=== PATIENT | female | born 1970 | race African-American/Black ===

== ENCOUNTER 2016-06-03 18:16 | Observation (INO) ==
[2016-06-03 20:11] LABS: AGAP 14; ALBUMIN 4.2 g/dL (3.5-5.0); ALKALINE PHOSPHATASE 70 U/L (32-104); BUN 11 mg/dL (8-22); CALCIUM 8.7 mg/dL (8.8-10.2); CHLORIDE 105 mmol/L (98-107); COSMO 284; GOT 24 U/L (10-30); GPT 8 U/L (10-36); POTASSIUM 3.9 mmol/L (3.5-5.1); SODIUM 143 mmol/L (136-145); TCO2 24 mmol/L (25-35); TOTAL BILIRUBIN 0.23 mg/dL (0.20-1.00); TOTAL PROTEIN 7.7 g/dL (6.3-8.3)
--- NOTE | 2016-06-03 20:18 | PROVIDER DOCUMENTATION ---
HPI-Musculoskeletal Pain/Inj - GENERAL Chief Complaint: Extremity Pain Stated Complaint: PAIN LT FOOT, COUGH/SOB Time Seen by Provider: 06/03/16 18:45 Source: patient - HX OF PRESENT ILLNESS-MUSKULOSKELTAL Nature of Presenting Problem: This pt presents today c complaints of left foot pain X 3 days. She denies any known injury or trauma. There is no swelling or erythema noted. She reports that the pain is worse when she puts pressure on her heel. She reports a hx of gout but has never had this pain in her heel before. Pt is also requesting that we check her "blood count". She states that she has a hx of anemia and is supposed to be on iron supplements but does not currently take them. She states that two years ago she had to be hospitalized because she has frequently heavy menses and this causes iron deficiency anemia. She states that she is having similar symptoms at this time. No other issues or complaints. Quality of Pain: reports: aching Severity in ED: mild Onset/Duration: 3 days ago Timing: still present Modifying Factors: improves with: movement, palpation Any recent injury?: No Similar Symptoms Previously?: No Recently seen or treated by another doctor?: No Review of Systems - Adult - REVIEW OF SYSTEMS - ADULT Constitutional: reports: fatique. denies: chills, fever Eyes: reports: no symptoms reported. denies: discharge, dry eyes Ears, Nose, Mouth & Throat: reports: no symptoms reported. denies: ear discharge, ear pain Cardiovascular: reports: no symptoms reported. denies: chest pain, edema Respiratory: reports: no symptoms reported. denies: chronic cough, cough Gastrointestinal: reports: no symptoms reported. denies: abdominal pain, hematemesis Genitourinary: reports: see HPI. denies: dysuria, discharge Musculoskeletal: reports: bone pain, muscle aches. denies: back pain, frequent leg cramps, joint swelling Integumentary: reports: no symptoms reported. denies: hives, hair loss Neurological: reports: no symptoms reported. denies: ataxia, dizziness/vertigo Psychiatric: reports: no symptoms reported. denies: anxiety, anti-depressant use Endocrine: reports: no symptoms reported Hematologic/Lymphatic: reports: see HPI Allergic/Immunologic: reports: no symptoms reported All Other Systems: Reviewed and Negative Past History - Adult - PAST MEDICAL HISTORY-ADULT Review of Records: reports: Old Records Reviewed, Nursing Assessment Review, Medications Reviewed, Social history reviewed & non-contributory. Major Childhood Illnesses: reports: denies history Cardiovascular: reports: blood clots (DVT left leg), HTN Respiratory: reports: denies history Gastrointestinal: reports: denies history Obstetrical/Gynecological: reports: fibroids Genitourinary: reports: denies history Musculoskeletal: reports: denies history Neurological: reports: denies history Psychiatric: reports: depression Endocrine/Immune: reports: denies history Other Conditions: reports: denies history - FAMILY HISTORY Family History: reviewed, not pertinent - SOCIAL HISTORY Smoking: cigarettes, less than 1 pack/day Provider spent 3-5 mins advising pt. on dangers of tobacco.: Discussed manners to quit use, and f/u contacts for add'l counseling. Physical Exam-Injury Related - Physical Exam-Injury Related Initial Vital Signs Reviewed: Yes General Appearance: appears well, alert, no apparent distress Eyes: PERRL/EOMI, pink conjunctivae Head, Ears, Nose, Mouth & Throat: normocephalic/atraumatic, moist mucous membranes, normal ENT inspection Neck: non-tender, full range of motion, supple, normal inspection Respiratory: chest non-tender, lungs clear, normal breath sounds, no pleuratic chest pain, no respiratory distress, no accessory muscle use Cardiovascular: normal peripheral pulses, regular rate, rhythm Abdominal Exam: normal bowel sounds, non tender, soft, no organomegaly, no pulsatile mass, abdominal bruit, abnormal bowel sounds Back Exam: normal inspection, no CVA tenderness, no vertebral tenderness Extremity: normal range of motion, normal gait, normal inspection, tenderness ( left heel). negative: pulse deficit, pedal edema, swelling Integumentary: normal color, warm/dry, blanching Neurologic: grossly normal, no motor/sensory deficits Psych/Mental Status: normal mood/affect, normal thought content, normal thought process, oriented x 3 Progress - PLAN OF CARE/RESULTS Progress/Plan/Lab Results: Laboratory Tests 06/03/16 06/03/16 06/03/16 19:03 19:03 19:07 WBC 6.48 RBC 3.66 L Hgb 5.2 L* Hct 20.2 L MCV 55.2 L MCH 14.2 L MCHC 25.7 L RDW Std Deviation 24.0 H Plt Count 562 H MPV Not Reportable Immature Gran % (Auto) 0.3 Neut % (Auto) 58.8 Lymph % (Auto) 24.7 [place] % (Auto) 12.5 H Eos % (Auto) 2.8 Baso % (Auto) 0.9 H Immature Gran # (Auto) 0.02 Neut # (Auto) 3.81 Lymph # (Auto) 1.60 [place] # (Auto) 0.81 H Eos # (Auto) 0.18 Baso # (Auto) 0.06 Sodium 143 Potassium 3.9 Chloride 105 Carbon Dioxide 24 L Anion Gap 14 BUN 11 Creatinine 1.0 H Estimated GFR/1.73 m2 > 60 BUN/Creatinine Ratio 11 Glucose 86 Calculated Osmolality 284 Uric Acid 4.5 Calcium 8.7 L Total Bilirubin 0.23 AST 24 ALT 8 L Alkaline Phosphatase 70 Total Protein 7.7 Albumin 4.2 Globulin 3.5 Albumin/Globulin Ratio 1.2 Orders Category Date Time Status Saline Loc NOW Care 06/03/16 20:21 Active FOOT COMPLETE LEFT [RAD] Stat Exams 06/03/16 18:32 Taken CBC WITH ELECTRONIC DIFF [HEME] Stat Lab 06/03/16 19:07 Results CMP [COMPREHENSIVE METABOLIC PANEL] [CHEM] Stat Lab 06/03/16 19:03 Completed PROTIME WITH INR [COAG] Stat Lab 06/03/16 19:03 Received PTT [COAG] Stat Lab 06/03/16 19:03 Received TYPE & SCREEN [BBK] Stat Lab 06/03/16 20:21 Uncollected URIC ACID [CHEM] Stat Lab 06/03/16 19:03 Completed Vital Signs Temp Pulse Resp BP Pulse Ox 06/03/16 18:22 98.3 F 106 H 18 156/78 100 doxycycline Allergy (Severe, Verified 06/03/16 18:59) VOMITING; SWELLING TO FACE No Home Medications 06/03/16 Laboratory 06/03/16 06/03/16 06/03/16 19:07 19:03 19:03 WBC 6.48 RBC 3.66 L Hgb 5.2 L* Hct 20.2 L MCV 55.2 L MCH 14.2 L MCHC 25.7 L RDW Std Deviation 24.0 H Plt Count 562 H MPV Not Reportable Immature Gran % (Auto) 0.3 Neut % (Auto) 58.8 Lymph % (Auto) 24.7 [place] % (Auto) 12.5 H Eos % (Auto) 2.8 Baso % (Auto) 0.9 H Immature Gran # (Auto) 0.02 Neut # (Auto) 3.81 Lymph # (Auto) 1.60 [place] # (Auto) 0.81 H Eos # (Auto) 0.18 Baso # (Auto) 0.06 Sodium 143 Potassium 3.9 Chloride 105 Carbon Dioxide 24 L Anion Gap 14 BUN 11 Creatinine 1.0 H Estimated GFR/1.73 m2 > 60 BUN/Creatinine Ratio 11 Glucose 86 Calculated Osmolality 284 Uric Acid 4.5 Calcium 8.7 L Total Bilirubin 0.23 AST 24 ALT 8 L Alkaline Phosphatase 70 Total Protein 7.7 Albumin 4.2 Globulin 3.5 Albumin/Globulin Ratio 1.2 Pt's story seems to be evolving. She is now reporting that she 3 weeks ago she had a pain in her calf and was concerned that this may have been a DVT because she does have a hx. She states that she had some "leftover" coumadin so she took those for 3 days. The pain resolved on the same day however and she has no pain or DVT symptoms at this time. Will consult hospitalist service for admission and blood transfusion. Discussed case c Dr. Jarvis and he is in agreement. - CONSULTS/PCP/HOSPITALIST Notification #1 *Consult/PCP/Hospitalist*: Dr. Stewart Time Discussed: 20:42 Consult Disposition: Will see in ED (Will decide on admission.) Departure - Departure Time of Disposition Order: 21:18 DIAGNOSIS: Foot pain Qualifiers: Laterality: left Qualified Code(s): M79.672 - Pain in left foot Fatigue Qualifiers: Fatigue type: other Qualified Code(s): R53.83 - Other fatigue Anemia Qualifiers: Anemia type: iron deficiency Iron deficiency anemia type: unspecified iron deficiency Qualified Code(s): D50.9 - Iron deficiency anemia, unspecified Disposition: ADMITTED INPATIENT 09 Certified Medical Emergency: Emergent Condition: Stable Referrals: None,PCP [Primary Care Provider] - Attestation - Physician/ TERESITA Attestation Patient care was provided by Advanced Practice Provider:: Yes Advanced Practice Provider:: Robert Ignacio Advanced Practice Provider documentation review:: The Mid-level provider documentation, treatment plan and medical decision making was reviewed by the physician who agrees with all treatment and medical decision making by the MLP.
[2016-06-03 20:24] LABS: HEMATOCRIT 20.2 % (37.0-47.0); HEMOGLOBIN 5.2 g/dL (12.0-16.0)
[2016-06-03 20:25] LABS: BASO% 0.9 % (0.0-0.8); EOS# 0.18 X1000 (0.0-0.7); EOS% 2.8 % (0.0-10.0); IMM GRAN# 0.02 X1000 (0.0-0.04); IMM GRAN% 0.3 % (0.0-0.5); LYMPH% 24.7 % (20.5-51.1); MANUAL DIFF NEEDED? YES; MCH 14.2 PG (27-31); MCHC 25.7 g/dL (33-37); MCV 55.2 FL (81-99); MONO# 0.81 X1000 (0.11-0.59); MONO% 12.5 % (1.7-9.3); NEUT% 58.8 % (42.2-75.2); PLT 562 X1000 (130-400); RBC 3.66 XMIL (4.2-5.4)
[2016-06-03 20:42] LABS: BANDS 2 % (0-1); EOS 2 % (1-10); LYMPHS 18 % (21-51); MONO 8 % (1-9)
[2016-06-03 20:45] LABS: HYPOCHROM 3+; POLYCHROM 1+
[2016-06-03 20:46] LABS: TARGET CELLS 1+
[2016-06-03 20:47] LABS: LARGE PLATELETS OCCASIONAL
[2016-06-03 20:50] LABS: INR 0.98; PTT 20.4 Seconds (22.0-36.0)
--- NOTE | 2016-06-03 22:33 | HISTORY AND PHYSICAL ---
PRIMARY CARE PHYSICIAN: None. CHIEF COMPLAINT: Weakness, shortness of breath, left foot pain times several days. HISTORY OF PRESENTING ILLNESS: A 46-year-old female with a history of hypertension, DVT, currently not on any medication presented to emergency department complaining of worsening weakness, shortness of breath and also having left foot pain for the past several days. The patient states that she does have a history of heavy menstrual cycles and just has recently come off of her cycle. She was evaluated in the ER, she was found to be severely anemic and due to her symptoms it was thought that we would place her in for observation for further management. At the time of my examination, she had denied any headache, fever, chills, chest pain, hemoptysis, melena or weight changes but complained of shortness of breath and not feeling well. PAST MEDICAL HISTORY: Includes DVT, hypertension. PAST SURGICAL HISTORY: None. ALLERGIES: Doxycycline. CURRENT MEDICATIONS: None. SOCIAL HISTORY: Ten pack years history of smoking. Denies any history of alcohol or illicit drug use. FAMILY HISTORY: No history of coronary disease. REVIEW OF SYSTEMS: Twelve point review of systems is as in HPI. Other systems negative. PHYSICAL EXAMINATION: GENERAL: Cooperative, friendly female. She is resting more comfortably now. VITAL SIGNS: Temperature 98.3 degrees, pulse 106 respiration 18, blood pressure 156/78. She is saturating 100%. HEENT: Atraumatic, normocephalic. Extraocular movements intact. PERRLA. NECK: No masses. CHEST: Clear to auscultation. CARDIOVASCULAR: Regular rhythm. ABDOMEN: Soft. Positive bowel sounds. EXTREMITIES: No edema. NEURO: She is awake, alert, oriented x3. : No bladder distention. SKIN: Warm. LABORATORIES AND STUDIES: WBC 6.48, hemoglobin 5.2, hematocrit 20.2, platelets 562,000. Sodium 143, potassium 3.9, chloride 105, CO2 is 24, BUN is 11, creatinine 1.0, glucose is 86. ASSESSMENT: A 46-year-old female with a history of heavy menstrual cycles and hypertension had presented to emergency department complaint of worsening shortness of breath, weakness and fatigue. She was found in the emergency room to be severely anemic and due to her presenting symptoms, she will need hospitalization for further management. 1. Symptomatic anemia. 2. Menorrhagia. 3. Hypertension. 4. Left heal pain- suspected plantar fasciitis PLAN: 1. We will admit patient to medical floor. 2. Will type and cross and transfuse 2 units of blood. 3. Will do an outpatient gynecology referral. 4. Will put patient on iron supplements. 5. Will monitor her blood pressure closely. 6. NSAIDS for pain, achilles tendon stretches 7. Will put patient on DVT prophylaxis with SCDs. 8. Will continue to follow and reassess. DANNA
[2016-06-03] MEDS ORDERED: BENADRYL PO ONE (22:44)
[2016-06-03] MEDS ORDERED: TYLENOL PO ONE (22:44)
[2016-06-03] MEDS ORDERED: LASIX IV SCH (22:45)
[2016-06-04] MEDS ORDERED: NS 500 ML ONE (02:30)
[2016-06-04] MEDS ORDERED: TYLENOL PO PRN (04:18)
[2016-06-04 06:38] LABS: HEMATOCRIT 23.6 % (37.0-47.0); HEMOGLOBIN 6.8 g/dL (12.0-16.0); MCH 17.7 PG (27-31); MCHC 28.8 g/dL (33-37); MCV 61.5 FL (81-99); PLT 429 X1000 (130-400); RBC 3.84 XMIL (4.2-5.4)
[2016-06-04] MEDS ORDERED: BENADRYL PO ONE (07:58)
[2016-06-04] MEDS ORDERED: NS 500 ML IV ONE (07:58)
--- NOTE | 2016-06-04 10:41 | Diag Imaging Result Document ---
PROCEDURE NAME: FOOT COMPLETE LEFT - 06/03/2016 LEFT FOOT, 3 VIEWS: FINDINGS: There is apparent relatively generalized soft tissue swelling, most conspicuous at the hindfoot. There is calcaneal spurring at the plantar fascia insertion. There is no fracture or dislocation identified. There are no erosive or destructive changes identified. There is no opaque foreign body seen. IMPRESSION: Soft tissue swelling, most conspicuous at the hindfoot/heel. No visible acute bony abnormality.
--- NOTE | 2016-06-04 11:53 | PROGRESS NOTE ---
DATE: 06/04/2016 SUBJECTIVE: The patient notes she is feeling okay, denies any chest pain, palpitations. PHYSICAL EXAMINATION: Temperature 98, pulse 70, respiratory 18, BP 149/87.General: Patient well developed, well nourished. Currently in no real respiratory distress. She is awake, alert. Neck: Supple. CV: Regular rate. Chest: Relatively clear. Abdomen: Soft, nondistended. Extremities: Moves all extremities. LABS: Hemoglobin and hematocrit 6 and 23 after 2 units of transfusion. ASSESSMENT: 1. Acute anemia secondary to dysfunctional uterine bleeding. 2. Dysfunctional uterine bleeding. 3. Hypertension. 4. Chronic tobacco abuse. Discussed with patient the perils of smoking. PLAN: We will type, cross, transfuse 2 more units of blood. We will recheck hemoglobin and hematocrit in the a.m. If it is stable, hopefully can get her home at that point, and she can follow up outpatient with [facility].
[2016-06-05 06:48] LABS: HEMATOCRIT 29.5 % (37.0-47.0); HEMOGLOBIN 8.9 g/dL (12.0-16.0); MCH 19.2 PG (27-31); MCHC 30.2 g/dL (33-37); MCV 63.7 FL (81-99); PLT 396 X1000 (130-400); RBC 4.63 XMIL (4.2-5.4)
[2016-06-05 07:22] LABS: AGAP 9; ALBUMIN 3.6 g/dL (3.5-5.0); ALKALINE PHOSPHATASE 60 U/L (32-104); BUN 11 mg/dL (8-22); CALCIUM 8.9 mg/dL (8.8-10.2); CHLORIDE 107 mmol/L (98-107); COSMO 278; GOT 12 U/L (10-30); GPT 6 U/L (10-36); POTASSIUM 4.2 mmol/L (3.5-5.1); SODIUM 140 mmol/L (136-145); TCO2 24 mmol/L (25-35); TOTAL PROTEIN 6.6 g/dL (6.3-8.3)
[2016-06-05 17:08] VITALS: BP 150/75
--- NOTE | 2016-06-06 07:33 | DISCHARGE SUMMARY ---
ADMISSION DATE: 06/03/2016 DISCHARGE DATE: 06/05/2016 DISCHARGE DIAGNOSES: 1. Symptomatic anemia. Hemoglobin and hematocrit 5 and 20 on admit; 8 and 29 on discharge after 4 units. 2. Hyperchromic anemia secondary to dysfunctional uterine bleeding and iron deficiency. 3. Menometrorrhagia. 4. Hypertension. CONSULTATIONS: None. PROCEDURES: None. BRIEF HOSPITAL COURSE: Patient is a 46-year-old female who was admitted as noted on the HPI. Treated in usual fashion. She was placed on the floor given IV fluids. Typed and crossed and transfused 2 units. Her hemoglobin and hematocrit improved, but only to 6 and 23. She was given 2 more units and her hemoglobin and hematocrit improved to 8 and 29. Her bleeding has somewhat resided at the moment. DISPOSITION: The patient was discharged home. Discussed her that she needs to follow up outpatient with [facility]. The patient states she understands and is ready to go. She is having no chest pain or palpitations. She is ambulating without any difficulty. TIME SPENT: 35 minutes was spent in discharge planning and instructions.
== END 2016-06-05 19:15 | disposition home or self-care (01) ==
LOC: ED 18:16 → P.MEDSURG 22:25
PROVIDERS: ATTEND Family Medicine
DX: D50.9 Iron deficiency anemia, unspecified (principal); M79.672 Pain in left foot; R53.1 Weakness; R06.02 Shortness of breath; N93.8 Other specified abnormal uterine and vaginal bleeding; N92.1 Excessive and frequent menstruation with irregular cycle; F17.210 Nicotine dependence, cigarettes, uncomplicated; I10 Essential (primary) hypertension; Z86.718 Personal history of other venous thrombosis and embolism
CPT/HCPCS: 36415; 36430; 80053; 84550; 85025; 85027; 85610; 85730; 86850; 86900; 86901; 86920; 96374; J1940; J7040; P9016; 99285-25

== ENCOUNTER 2016-06-07 16:23 | Inpatient (IN) ==
--- NOTE | 2016-06-07 18:57 | PROVIDER DOCUMENTATION ---
HPI-Rash/Wound/ReCheck - General Chief Complaint: Post Op Complaint Stated Complaint: IV SITE SWOLLEN SORE REDNESS Time Seen by Provider: 06/07/16 18:12 Source: patient Allergies/Adverse Reactions: Allergies Allergy/AdvReac Type Severity Reaction Status Date / Time doxycycline Allergy Severe VOMITING; Verified 06/07/16 18:08 SWELLING TO FACE Home Medications: Home Medication List Medication Instructions Recorded Confirmed Last Taken Type No Home Medications 06/07/16 06/07/16 Unknown History - History of Present Illness-Dermatology Nature of Presenting Problem: 46 y/o BF c/o L arm pain/redness/swelling x 2 days. Pt states that she had a blood infusion on Monday and noted redness occurring then. States worse when the IV was taken out on Monday. States no other sxs at this time. Review of Systems - Adult - REVIEW OF SYSTEMS - ADULT Constitutional: reports: no symptoms reported. denies: chills, fever Eyes: reports: no symptoms reported. denies: blurred vision, double vision Ears, Nose, Mouth & Throat: reports: no symptoms reported. denies: ear pain, nose pain Cardiovascular: reports: no symptoms reported. denies: chest pain, palpitations Respiratory: reports: no symptoms reported. denies: dyspnea on exertion, shortness of breath Gastrointestinal: reports: no symptoms reported. denies: nausea, vomiting Genitourinary: reports: no symptoms reported. denies: dysuria, frequency Musculoskeletal: reports: no symptoms reported. denies: joint pain, joint swelling Integumentary: reports: see HPI, other. denies: nail changes, rash Neurological: reports: no symptoms reported. denies: numbness, paresthesia Psychiatric: reports: no symptoms reported Endocrine: reports: no symptoms reported. denies: cold intolerance, heat intolerance Hematologic/Lymphatic: reports: no symptoms reported. denies: easy bruising, prolonged bleeding Allergic/Immunologic: reports: no symptoms reported All Other Systems: Reviewed and Negative Past History - Adult - PAST MEDICAL HISTORY-ADULT Review of Records: reports: Nursing Assessment Review, Medications Reviewed Major Childhood Illnesses: reports: denies history Cardiovascular: reports: blood clots (DVT left leg), HTN Respiratory: reports: denies history Gastrointestinal: reports: denies history Obstetrical/Gynecological: reports: fibroids Genitourinary: reports: denies history Musculoskeletal: reports: denies history Neurological: reports: denies history Psychiatric: reports: depression Endocrine/Immune: reports: denies history Other Conditions: reports: denies history - FAMILY HISTORY Family History: reviewed, not pertinent - SOCIAL HISTORY Smoking: quit greater than 1 year Physical Exam-General - PHYSICAL EXAM-ADULT Initial Vital Signs Reviewed: Yes - CONSTITUTIONAL General Appearance: alert, mild distress - EYES Eyes: pink conjunctivae - HEAD, EARS, NOSE, MOUTH & THROAT HENMT: normocephalic/atraumatic, moist mucous membranes - NECK Neck: supple, normal inspection - RESPIRATORY Respiratory: no respiratory distress - CARDIOVASCULAR Cardiovascular: normal peripheral pulses, regular rate, rhythm. negative: bradycardia, tachycardia - LYMPHATIC Lymphatic: no adenopathy - MUSCULOSKELETAL Back Exam: normal inspection Extremity: normal gait, normal capillary refill. negative: abnormal NV exam, pulse deficit Peripheral Pulses: radial (R): 2+, radial (L): 2+ - SKIN Integumentary: normal color, normal turgor, warm/dry, erythema (L forearm and humerus), warm (L forearm and humerus) Progress - PLAN OF CARE/RESULTS Progress/Plan/Lab Results: Laboratory Tests 06/07/16 06/07/16 06/07/16 18:35 18:35 18:35 WBC 11.49 H RBC 5.13 Hgb 9.9 L Hct 33.4 L MCV 65.1 L MCH 19.3 L MCHC 29.6 L RDW Std Deviation Not Reportable Plt Count 446 H MPV Not Reportable Immature Gran % (Auto) 0.2 Neut % (Auto) 70.6 Lymph % (Auto) 19.8 L Desha % (Auto) 8.0 Eos % (Auto) 1.0 Baso % (Auto) 0.4 Immature Gran # (Auto) 0.02 Neut # (Auto) 8.11 H Lymph # (Auto) 2.27 Desha # (Auto) 0.92 H Eos # (Auto) 0.12 Baso # (Auto) 0.05 Segmented Neutrophils Lymphocytes Monocytes Hypochromia Poikilocytosis Anisocytosis Microcytosis PT INR D-Dimer 2.34 H Sodium 140 Potassium 3.7 Chloride 102 Carbon Dioxide 24 L Anion Gap 14 BUN 13 Creatinine 1.0 H Estimated GFR/1.73 m2 > 60 BUN/Creatinine Ratio 13 Glucose 127 H Calculated Osmolality 281 Calcium 9.0 03/06/08/16 06/08/16 06:40 06:40 16:20 WBC 9.43 RBC 4.47 Hgb 8.9 L Hct 29.2 L MCV 65.3 L MCH 19.9 L MCHC 30.5 L RDW Std Deviation Not Reportable Plt Count 381 MPV Not Reportable Immature Gran % (Auto) 0.0 Neut % (Auto) 66.1 Lymph % (Auto) 22.3 Desha % (Auto) 9.4 H Eos % (Auto) 1.8 Baso % (Auto) 0.4 Immature Gran # (Auto) 0.00 Neut # (Auto) 6.23 Lymph # (Auto) 2.10 Desha # (Auto) 0.89 H Eos # (Auto) 0.17 Baso # (Auto) 0.04 Segmented Neutrophils 70 Lymphocytes 22 Monocytes 8 Hypochromia 1+ Poikilocytosis OCCASIONAL Anisocytosis 1+ Microcytosis 1+ PT 10.0 INR 0.98 D-Dimer Sodium 139 Potassium 4.3 D Chloride 106 Carbon Dioxide 24 L Anion Gap 9 BUN 11 Creatinine 0.9 Estimated GFR/1.73 m2 > 60 BUN/Creatinine Ratio 12 Glucose 94 Calculated Osmolality 277 Calcium 9.0 06/09/16 06:19 WBC RBC Hgb Hct MCV MCH MCHC RDW Std Deviation Plt Count MPV Immature Gran % (Auto) Neut % (Auto) Lymph % (Auto) Desha % (Auto) Eos % (Auto) Baso % (Auto) Immature Gran # (Auto) Neut # (Auto) Lymph # (Auto) Desha # (Auto) Eos # (Auto) Baso # (Auto) Segmented Neutrophils Lymphocytes Monocytes Hypochromia Poikilocytosis Anisocytosis Microcytosis PT 10.1 INR 0.99 D-Dimer Sodium Potassium Chloride Carbon Dioxide Anion Gap BUN Creatinine Estimated GFR/1.73 m2 BUN/Creatinine Ratio Glucose Calculated Osmolality Calcium Orders Category Date Time Status Admit - [facility] Routine AdmDCTranf 06/07/16 22:49 Ordered Activity - Up with Assistance ORDERED Care 06/07/16 22:49 Active Apply Mechanical Device [QM] ORDERED Care 06/07/16 22:49 Active Does patient desire to be vacc [QM] ONCE Care 06/08/16 03:48 Completed Intake and Output-Strict ORDERED Care 06/07/16 22:49 Active Previous Flu Vaccine THIS SEAS [QM] ONCE Care 06/08/16 03:48 Completed Vital Signs Order Q 8-HR ASSESS Care 06/07/16 22:49 Active Regular Diet Diet 06/07/16 22:21 Active ANGIOGRAM/PULMONARY ARTERIES [CT] Stat Exams 06/07/16 21:57 Completed BASIC METABOLIC PANEL [CHEM] Routine Lab 06/08/16 06:40 Completed BMP [BASIC METABOLIC PANEL] [CHEM] Stat Lab 06/07/16 18:35 Completed CBC WITH DIFF [HEME] Routine Lab 06/08/16 06:40 Completed CBC WITH ELECTRONIC DIFF [HEME] Stat Lab 06/07/16 18:35 Completed Ddimer [D-DIMER] [CHEM] Stat Lab 06/07/16 18:35 Completed PROTIME WITH INR [COAG] DAILY Lab 06/09/16 06:19 Completed PROTIME WITH INR [COAG] DAILY Lab 06/10/16 06:00 Ordered PROTIME WITH INR [COAG] DAILY Lab 06/11/16 06:00 Ordered PROTIME WITH INR [COAG] Routine Lab 06/08/16 16:20 Completed Acetaminophen [Tylenol] Med 06/07/16 22:49 Active 650 mg PO Q6H PRN PRN Clindamycin 900 mg/Ns 50 ml Med 06/07/16 19:40 Discontinued IV NOW Enoxaparin [Lovenox] Med 06/08/16 01:30 Active 90 mg SUBQ Q12H Ondansetron [Zofran] Med 06/07/16 22:49 Active 4 mg IV Q4H PRN PRN Piperacil/Tazobact 4.5 gm/Ns [Zosyn 4.5 gm/Ns] 100 ml Med 06/07/16 21:56 Discontinued IV NOW Warfarin [Coumadin] Med 06/08/16 21:00 Active 10 mg PO QHS Telemetry [OM.EQ] Routine Oth 06/07/16 22:49 Active Venous U/S Left Arm [CV] Stat Ther 06/07/16 19:39 Completed Transfer/Admit Order [TRANSFER] Routine Transfer 06/07/16 22:20 Completed Vital Signs Temp Pulse Resp BP Pulse Ox 06/09/16 19:30 97.9 F 100 H 18 141/77 97 06/09/16 15:19 98.2 F 65 18 135/68 98 06/09/16 07:32 98.5 F 63 18 136/70 100 06/09/16 03:33 98.3 F 66 149/95 97 06/08/16 19:44 98.4 F 70 131/71 97 06/08/16 14:00 98.4 F 72 14 140/101 100 06/08/16 07:40 98.7 F 66 14 145/103 98 06/08/16 00:54 98.0 F 82 20 151/92 98 06/08/16 00:27 97.5 F L 83 18 140/79 98 06/07/16 21:09 98.4 F 103 H 18 157/96 100 06/07/16 16:43 98.8 F 88 18 162/96 100 doxycycline Allergy (Severe, Verified 06/07/16 18:08) VOMITING; SWELLING TO FACE No Home Medications 06/07/16 Dietary Diet Regular Diet Start MonJun 07 2220 I&O 06/08/16 06/09/16 06/10/16 06:59 06:59 06:59 Intake Total 1290 1370 Output Total 400 1800 1200 Balance -400 -510 170 Laboratory 06/09/16 06/08/16 06/08/16 06:19 16:20 06:40 WBC 9.43 RBC 4.47 Hgb 8.9 L Hct 29.2 L MCV 65.3 L MCH 19.9 L MCHC 30.5 L RDW Std Deviation Not Reportable Plt Count 381 MPV Not Reportable Immature Gran % (Auto) 0.0 Neut % (Auto) 66.1 Lymph % (Auto) 22.3 Desha % (Auto) 9.4 H Eos % (Auto) 1.8 Baso % (Auto) 0.4 Immature Gran # (Auto) 0.00 Neut # (Auto) 6.23 Lymph # (Auto) 2.10 Desha # (Auto) 0.89 H Eos # (Auto) 0.17 Baso # (Auto) 0.04 Segmented Neutrophils 70 Lymphocytes 22 Monocytes 8 Hypochromia 1+ Poikilocytosis OCCASIONAL Anisocytosis 1+ Microcytosis 1+ PT 10.1 10.0 INR 0.99 0.98 Sodium Potassium Chloride Carbon Dioxide Anion Gap BUN Creatinine Estimated GFR/1.73 m2 BUN/Creatinine Ratio Glucose Calculated Osmolality Calcium 06/08/16 06:40 WBC RBC Hgb Hct MCV MCH MCHC RDW Std Deviation Plt Count MPV Immature Gran % (Auto) Neut % (Auto) Lymph % (Auto) Desha % (Auto) Eos % (Auto) Baso % (Auto) Immature Gran # (Auto) Neut # (Auto) Lymph # (Auto) Desha # (Auto) Eos # (Auto) Baso # (Auto) Segmented Neutrophils Lymphocytes Monocytes Hypochromia Poikilocytosis Anisocytosis Microcytosis PT INR Sodium 139 Potassium 4.3 D Chloride 106 Carbon Dioxide 24 L Anion Gap 9 BUN 11 Creatinine 0.9 Estimated GFR/1.73 m2 > 60 BUN/Creatinine Ratio 12 Glucose 94 Calculated Osmolality 277 Calcium 9.[address] Jarvis; he states to call hospitalist for admission. - ULTRASOUND (By Radiology) 1 US Study: Upper Ext (L) Impression: Discussed w/Radiology (clot in L cephalic and L median cubital veins extending down the UE to the wrist) - CONSULTS/PCP/HOSPITALIST Notification #1 *Consult/PCP/Hospitalist*: Dr. Stewart Time Discussed: 21:09 Reason/Comments: DVT Consult Disposition: Will see in ED Departure - Departure Time of Disposition Order: 21:00 DIAGNOSIS: Clot Cellulitis Qualifiers: Site of cellulitis: extremity Site of cellulitis of extremity: upper extremity Laterality: left Qualified Code(s): L03.114 - Cellulitis of left upper limb Anemia Qualifiers: Anemia type: unspecified type Qualified Code(s): D64.9 - Anemia, unspecified Disposition: ADMITTED INPATIENT 09 Certified Medical Emergency: Emergent Condition: Stable Attestation - Physician/ TERESITA Attestation Patient care was provided by Advanced Practice Provider:: Yes Advanced Practice Provider:: Mimi Sanford Advanced Practice Provider documentation review:: The Mid-level provider documentation, treatment plan and medical decision making was reviewed by the physician who agrees with all treatment and medical decision making by the MLP.
[2016-06-07 19:15] LABS: BASO% 0.4 % (0.0-0.8); EOS# 0.12 X1000 (0.0-0.7); HEMATOCRIT 33.4 % (37.0-47.0); HEMOGLOBIN 9.9 g/dL (12.0-16.0); IMM GRAN# 0.02 X1000 (0.0-0.04); IMM GRAN% 0.2 % (0.0-0.5); LYMPH# 2.27 X1000 (1.2-3.4); LYMPH% 19.8 % (20.5-51.1); MANUAL DIFF NEEDED? NO; MCH 19.3 PG (27-31); MCHC 29.6 g/dL (33-37); MCV 65.1 FL (81-99); MONO# 0.92 X1000 (0.11-0.59); NEUT% 70.6 % (42.2-75.2); PLT 446 X1000 (130-400); RBC 5.13 XMIL (4.2-5.4)
[2016-06-07 19:29] LABS: AGAP 14; BUN 13 mg/dL (8-22); CHLORIDE 102 mmol/L (98-107); COSMO 281; POTASSIUM 3.7 mmol/L (3.5-5.1); SODIUM 140 mmol/L (136-145); TCO2 24 mmol/L (25-35)
[2016-06-07] MEDS ORDERED: CLINDAMYCIN 900 MG/NS 50 ML IV ONE (19:40)
[2016-06-07] MEDS ORDERED: ZOSYN 4.5 GM/NS 100 ML IV ONE (21:56)
--- NOTE | 2016-06-07 22:39 | HISTORY AND PHYSICAL ---
CHIEF COMPLAINT: For left forearm erythema and edema for several days. HISTORY OF PRESENTING ILLNESS: A 46-year-old female was just recently discharged from [facility] after treatment for anemia and dysfunctional uterine bleeding. She had went home and where the IV site was she developed moderate amount of pain and erythema. She returned back to the hospital here and she was found to have a DVT. Due to her presenting symptoms, she will need hospitalization for further management. At the time of my examination, she denied any headache, fever, chills, chest pain, shortness of breath, hemoptysis or weight changes. She does complain of left forearm pain. PAST MEDICAL HISTORY: Includes dysfunctional uterine bleeding. PAST SURGICAL HISTORY: None. ALLERGIES: Doxycycline. CURRENT MEDICATIONS: Listed on the MAY. SOCIAL HISTORY: She states she quit smoking last . She denies any history of alcohol or illicit drug use. FAMILY HISTORY: No history of coronary disease. REVIEW OF SYSTEMS: Twelve point systems is as in HPI. Other systems negative. PHYSICAL EXAMINATION: GENERAL: Cooperative, friendly female. She is resting comfortably now. VITAL SIGNS: Temperature 98.8 degrees, pulse 88, respiration 18, blood pressure 162/96. HEENT: Atraumatic, normocephalic. Extraocular movements intact. PERRLA. NECK: No masses. CHEST: Clear to auscultation. CARDIOVASCULAR: Regular rhythm. ABDOMEN: Soft. Positive bowel sounds. EXTREMITIES: Left forearm there is edema and erythema. NEURO: She is awake, alert, oriented x3. : No bladder distention. SKIN: Warm. LABORATORIES AND STUDIES: WBC 11.49, hemoglobin 9.9, hematocrit 33.4, platelets 446,000. D-dimer is 2.34. Sodium 140, potassium 3.7, chloride 102, CO2 24, BUN is 13, creatinine 1.0, glucose is 127. ASSESSMENT: A 46-year-old female who presented to the emergency department complain of left forearm pain. She apparently had an intravenous that was in that arm several days ago. She was found to have deep vein thrombosis. She will need hospitalization for management. Left upper extremity deep vein thrombosis. PLAN: 1. We will admit patient to medical floor. 2. We will start patient on Lovenox. 3. We will discuss options regarding anticoagulation for several more months. 4. We will continue to follow and reassess.
[2016-06-07] MEDS ORDERED: ZOFRAN IV PRN (22:49)
--- NOTE | 2016-06-07 23:22 | Diag Imaging Result Document ---
PROCEDURE NAME: ANGIOGRAM/PULMONARY ARTERIES - 06/07/2016 CT CHEST WITH INTRAVENOUS CONTRAST. DOSE REDUCTION PROTOCOL. FINDINGS: There are small peripheral filling defects within the branches of each lower lobe pulmonary artery. No large central fillings defects. No pleural effusions. No thoracic aortic aneurysm or dissection. There are small mediastinal lymph nodes. No enlarged lymph nodes. The heart is mildly prominent. There is a [id number] hiatal hernia. No consolidation. No bronchiectasis. IMPRESSION: 1. Small peripheral pulmonary emboli. 2. Luiribcb-vn-[id number] hiatal hernia. 3. Mild cardiomegaly. A preliminary report was called to Dr. Jarvis in the Emergency Room at 10:42 p.m..
--- NOTE | 2016-06-07 23:53 | HISTORY AND PHYSICAL ---
ADDENDUM: Please note that the ER physician had called me stating that a CAT scan of the chest was positive for bilateral pulmonary embolism. Patient as such is already being treated for left upper extremity DVT, and also is with the new findings will continue with Lovenox 1 mg/kg subcu q.12 hours, and bridge with either Coumadin or discuss options of patient being on Xarelto. MTDD
[2016-06-08] MEDS: LOVENOX SUBQ SCH ×2 (05:11→17:00)
[2016-06-08 07:15] LABS: BASO% 0.4 % (0.0-0.8); EOS# 0.17 X1000 (0.0-0.7); EOS% 1.8 % (0.0-10.0); HEMATOCRIT 29.2 % (37.0-47.0); HEMOGLOBIN 8.9 g/dL (12.0-16.0); LYMPH% 22.3 % (20.5-51.1); MANUAL DIFF NEEDED? YES; MCH 19.9 PG (27-31); MCHC 30.5 g/dL (33-37); MCV 65.3 FL (81-99); MONO# 0.89 X1000 (0.11-0.59); MONO% 9.4 % (1.7-9.3); NEUT% 66.1 % (42.2-75.2); PLT 381 X1000 (130-400); RBC 4.47 XMIL (4.2-5.4)
[2016-06-08 07:31] LABS: AGAP 9; BUN 11 mg/dL (8-22); CHLORIDE 106 mmol/L (98-107); COSMO 277; POTASSIUM 4.3 mmol/L (3.5-5.1); SODIUM 139 mmol/L (136-145); TCO2 24 mmol/L (25-35)
[2016-06-08 07:32] LABS: LYMPHS 22 % (21-51); MONO 8 % (1-9)
[2016-06-08 07:33] LABS: HYPOCHROM 1+
--- NOTE | 2016-06-08 13:35 | PROGRESS NOTE ---
DATE: 06/08/2016 A 45-year-old recently discharged from [facility] with treatment of anemia and dysfunctional uterine bleeding. She was scheduled for followup with [facility]. She went home, where at the IV site she developed a moderate amount of pain and erythema, and returned back. Hospital found a DVT. Due to her presenting symptoms, felt she would need hospitalization. 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 She has had 2 in the left leg, I believe. 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 I do not have the records of that workup, but this is her 3rd deep venous thrombosis, so I explained she will probably be on Coumadin for life. Left arm is a little better, a little less swollen. She was positive for bilateral pulmonary embolism, so will continue the Lovenox. She has been on Coumadin before. She cannot afford Xarelto. We will most likely go back on the Coumadin, and I will probably go ahead and start that tonight.
[2016-06-08 16:37] LABS: INR 0.98
[2016-06-08] MEDS: TYLENOL PO PRN (17:00)
[2016-06-08] MEDS: COUMADIN PO SCH (20:12)
[2016-06-09] MEDS: LOVENOX SUBQ SCH ×2 (04:27→17:14)
[2016-06-09 07:31] LABS: INR 0.99; PROTIME 10.1 Seconds (9.2-11.7)
--- NOTE | 2016-06-09 09:52 | PROGRESS NOTE ---
DATE: 06/09/2016 SUBJECTIVE: Ms. Mai's left arm is much better. Decreased swelling and breathing comfortably. OBJECTIVE: Vital Signs: Remains afebrile. Temperature 98.5 degrees, pulse 60, respirations 18, blood pressure 136/70. HEENT: Pupils are equal and round. Neck: Central venous pressure is less than 6 cm. Lungs: Clear in all lung lehman. Cardiovascular: Regular rhythm and rate without murmur or S3. Abdomen: Soft. Skin: Warm and dry. URINE OUTPUT: Was 500 mL. LAB: Reviewed from the hematocrit 29. Electrolytes look good. Her ProTime, which just started Coumadin yesterday, ProTime was 10.1, INR 0.99. ASSESSMENT AND PLAN: Deep venous thrombosis left arm. This is her third deep venous thrombosis. Will be on Coumadin probably for life at this point. She is getting clinical improvement still on the Lovenox. She may get to go home tomorrow. Make sure we get Coumadin level followed. Breathing is comfortable. She also has bilateral PTE noted on pulmonary angiogram and noted a moderate to large hiatal hernia was noted as well. We will see if maybe can go home tomorrow.
[2016-06-09] MEDS: COUMADIN PO SCH (21:12)
[2016-06-10] MEDS: LOVENOX SUBQ SCH ×2 (05:40→17:30)
[2016-06-10 07:53] LABS: INR 1.03; PROTIME 10.9 Seconds (9.2-11.7)
--- NOTE | 2016-06-10 14:44 | PROGRESS NOTE ---
DATE: 06/10/2016 SUBJECTIVE: Ms. Mai is feeling better. Left arm is less tender, a little less swelling. I still feel palpable cord in the medial part of left arm. Breathing is comfortable. OBJECTIVE: Vital signs: Afebrile, temperature 98.7 degrees, pulse 65, respirations 18, blood pressure 131/72. HEENT: Pupils are equal, round. CVP less than 6 cm. Lungs: Clear in all lung lehman. Cardiovascular: Regular rhythm and rate without murmur or S3. Abdomen: Soft. : Urine output is over 1000 mL an hour. LABORATORY: White count 9430, hematocrit 29, platelet count 381,000. Sodium 139, potassium 4.3, chloride 106, bicarb 24, BUN 11, creatinine 0.9. ASSESSMENT AND PLAN: Deep venous thrombosis bilateral left arm deep venous thrombosis. Continue Lovenox. We have started her on Coumadin 10 mg at bedtime. Her ProTime is 10.9, so I would like to keep her another day and hopefully she can go home in the morning. Making good progress.
[2016-06-10] MEDS: TYLENOL PO PRN (16:01)
[2016-06-10] MEDS: COUMADIN PO SCH (20:09)
[2016-06-11] MEDS: LOVENOX SUBQ SCH (05:34)
[2016-06-11 07:20] LABS: INR 1.1; PROTIME 11.7 Seconds (9.2-11.7)
[2016-06-11 07:40] VITALS: BP 123/68
[2016-06-11] MEDS: COUMADIN PO SCH (11:39)
[2016-06-11] MEDS: TYLENOL PO PRN (11:39)
--- NOTE | 2016-06-11 14:58 | Extremity Venous Study ---
PROCEDURE NAME: Venous U/S Left Arm - 06/07/2016 LEFT UPPER EXTREMITY VENOUS DUPLEX STUDY: REFERRING PHYSICIAN: Dr. Jarvis. READING PHYSICIAN: Dr. Josef Wells. CHIEF ACCOUNTING OFFICER: Carlo. INDICATION: Pain and swelling and redness in the left arm since an IV was removed on 06/05/2016. FINDINGS: The left internal jugular, subclavian, axillary, basilic, and brachial veins were imaged throughout their course. All are compressible with forward flow. No thrombus is appreciated. The left cephalic vein in the proximal arm is noncompressible. It has thrombus throughout from the upper arm to the wrist and through the median cubital fossa and branches in the forearm. INTERPRETATION: No deep vein thrombosis seen in the left arm; however, there is acute superficial venous thrombosis of the left cephalic vein as described above.
--- NOTE | 2016-06-11 18:08 | DISCHARGE SUMMARY ---
ADMISSION DATE: 06/07/2016 DISCHARGE DATE: 06/11/2016 HISTORY OF PRESENT ILLNESS: This is a 46-year-old female who presented with left forearm erythema and edema for several days, recently discharged from [facility] after treatment for anemia and dysfunctional uterine bleeding. She went home, and where her IV was she had developed an amount of pain and erythema, returned back to the hospital and was found to have a DVT in that left arm. Pulmonary arteriogram showed I think small bilateral PTEs, small peripheral pulmonary emboli, moderate to large hiatal hernia and mild cardiomegaly. She was put on Lovenox. She had previously been on Coumadin, so I put her back on her Coumadin with overlap and ProTime was 11.7, INR of 1.10. She had received really 3 days of Coumadin. Left arm was much better. It was felt she could go home. We will keep her on 6 mg of Coumadin daily. I want her to get her ProTime checked every week and then every month after that, which she will get every week for 4 weeks. The aim is to keep her ProTime between 21 and 23. She understands that. We gave her a note to go back to work a week from 06/20/2016. It is very important that she follows up with her ProTime and takes her Coumadin every evening.
== END 2016-06-11 13:57 | disposition home or self-care (01) | DRG 299 ==
LOC: ED 16:23 → EDIPHOLD 23:19 → 4N 06-08 00:03 → DIRADM 06-09 13:17 → 4N 06-09 13:23
PROVIDERS: ATTEND Emergency Medicine
DX: I82.622 Acute embolism and thrombosis of deep veins of left upper extremity (principal); I26.99 Other pulmonary embolism without acute cor pulmonale; Z87.891 Personal history of nicotine dependence; Z86.718 Personal history of other venous thrombosis and embolism; K44.9 Diaphragmatic hernia without obstruction or gangrene
CPT/HCPCS: 71275; 80048; 85025; 85379; 85610; 93971; J1650; J2543; Q9967; S0077